=== PATIENT | male | born 1955 | race Caucasian/White ===

== ENCOUNTER 2018-04-24 07:29 | Day surgery (SDC) | payer OTHER ==
[~2018-04-24 07:29] MED LIST: ACET325T9 PO; AMLO5TAB4 PO; DOCU-109 PO; HYDROmorphone 2 MG/ML VIAL IV PRN; LACT10PA3 PO; LIDOCAINE 1% PF 2 ML VIAL. ID PRN; LISI1TAB7 PO; MORPHINE SULFATE 4 MG/ML VIAL. IV PRN; ONDANSETRON PF 4 MG/2 ML VIAL. IV PRN; PROCHLORPERAZINE 10 MG/2 ML VIAL. IV PRN; TAMS0.4C2 PO; fentaNYL PF VIAL 100 MCG/2 ML VIAL IV PRN
[2018-04-24] MEDS: IV RINGERS,LACTATED 1000ML 1,000 ML IV SCH ×2 (07:58→12:27)
[2018-04-24] MEDS ORDERED: BUPIVAC MPF-EPI 0.5%-1:200000 30 ML VIAL. ONE (08:13)
[2018-04-24] MEDS ORDERED: MIDAZOLAM HCL/PF 2 MG/2 ML VIAL. ONE (08:33)
[2018-04-24] MEDS ORDERED: ROCURONIUM 50 MG/5 ML VIAL. ONE ×2 (08:33→09:55)
[2018-04-24] MEDS ORDERED: GLYCOPYRROLATE 1 MG/5 ML VIAL. ONE (08:33)
[2018-04-24] MEDS ORDERED: NEOSTIGMINE 10 MG/10 ML VIAL. ONE (08:33)
[2018-04-24] MEDS ORDERED: fentaNYL PF VIAL 100 MCG/2 ML VIAL ONE (08:33)
[2018-04-24] MEDS ORDERED: PROPOFOL 20 ML IV ONE (08:34)
[2018-04-24] MEDS ORDERED: DEXAMETHASONE SOD PHOS 20 MG/5 ML VIAL. ONE (08:34)
[2018-04-24] MEDS ORDERED: ONDANSETRON PF 4 MG/2 ML VIAL. ONE (08:34)
[2018-04-24] MEDS ORDERED: LIDOCAINE 2% PF Vial for OR 5 ML VIAL. ONE (08:34)
[2018-04-24] MEDS ORDERED: KETOROLAC 30 MG/ML INJ FOR OR. INJ ONE (08:34)
[2018-04-24] MEDS ORDERED: SEVOFLURANE 61 TO 120 MINUTES. IH ONE (08:36)
--- NOTE | 2018-04-24 10:37 | PDOC4 ---
Operative Note Operative Note Date: 04/24/2018 Preoperative diagnosis: Incarcerated right inguinal hernia Postoperative diagnosis: Same Procedure: Robotic-assisted laparoscopic right inguinal hernia repair with mesh Surgeon: Augusto Dictation: Patient is a 62-year-old male who's had multiple episodes of incarceration of his right inguinal hernia with obstructive symptoms procedure of robotic-assisted laparoscopic right inguinal hernia repair with mesh was explained to the patient in detail all risks and benefits were also discussed including bleeding infection injury to intra-abdominal contents possibly necessitating further open operations. Alternatives to this procedure also discussed with the patient who seemed to understand and gave both verbal and written consent to have the procedure performed. Patient was taken to the operative room placed in supine position general anesthesia was initiated once patient was sleep and intubated his abdomen was prepped and draped usual sterile fashion using ChloraPrep is placed in low lithotomy positioning. An area just above the umbilicus was injected with quarter percent Marcaine with epinephrine incision was made Lembert scalpel a Veress needle was placed within the abdomen creating pneumoperitoneum once this complete 8 mm da Ximena port was placed and the 30 camera was placed within the abdomen and inspecting the abdomen was noted that the hernia on the right side was incarcerated with small bowel patient was placed in steep Trendelenburg a lot of this bowel was reduced with that Trendelenburg positioning to more 8 mm da Ximena ports were placed one in the right midabdomen one in the left midabdomen the da Ximena robot was brought in and docked all port sites the surgeon went to the robotic console using a grasper and Endo Prakash the small bowel was reduced from the hernia defect the peritoneum was opened on the superior border of the hernia defect with Endo Prakash scissors electrocautery this was propagated inferiorly reducing the hernia sac unfortunately the hernia sac was quite large and was transected to be able to allow for reduction of the hernia. A large mesh 3-D Bard max was placed over the hernia defect and the peritoneum was closed with a running the lock 2-0 suture. The hole in the hernia sac was closed again with a running V LOC 20 absorbable suture and this was tacked to the anterior abdominal wall. All ports removed the robot was undocked the pneumoperitoneum was reduced all port sites were closed for septic and a Monocryl Mastisol Steri- Strips and island dressings were applied. Patient was wakened and expected in the operating room taken to recovery in stable condition all sponge instrument needle counts listed as correct this medical blood loss 10 mL. KALI MADSEN MD Apr 24, 2018 10:37
--- NOTE | 2018-04-24 10:39 | DISCH ---
DISCHARGE INSTRUCTIONS Condition on Discharge Condition on Discharge: Stable Activity After Discharge Activity Instructions for Disc: Avoid exertion Other activity instructions: no lifting more than 20 pounds for 2 weeks Diet after Discharge Diet after Discharge: Regular Wound Incision Care Other wound/incision instructi: Esther shower in 24 hours Contacting the DRDemetria after DC Call your doctor for: If your condition worsens Follow-Up Follow up with: Dr. Madsen in 2 weeks KALI MADSEN MD Apr 24, 2018 10:39
[2018-04-24] MEDS: fentaNYL PF VIAL 100 MCG/2 ML VIAL IV PRN ×2 (11:28→12:04)
[2018-04-24] MEDS ORDERED: oxyCODONE/APAP 5/325 1 TAB TABLET ONE (11:34)
[2018-04-24] MEDS ORDERED: oxyCODONE/APAP 5/325 1 TAB TABLET PO ONE (11:45)
[2018-04-24 14:00] VITALS: BP 159/86
== END 2018-04-24 14:06 | disposition home or self-care (01) ==
LOC: SURG 07:29
PROVIDERS: ATTEND Surgery
DX: K40.30 Unilateral inguinal hernia, with obstruction, without gangrene, not specified as recurrent (principal); I10 Essential (primary) hypertension; Z79.899 Other long term (current) drug therapy; Z98.890 Other specified postprocedural states; Z87.891 Personal history of nicotine dependence
CPT/HCPCS: 49650; A7015; C1781; C1782; J0696; J1100; J1885; J2001; J2250; J2405; J2704; J2710; J3010; J3490; J7120; S2900